=== PATIENT | male | born 1960 | race Caucasian/White ===

== ENCOUNTER 2016-11-10 16:10 | Emergency (ER) | payer MEDICAID ==
--- NOTE | 2016-11-10 16:16 | EDPHY ---
H & P Time Seen by Provider: 11/10/16 16:16 HPI/ROS: CHIEF COMPLAINT: Seizure HISTORY OF PRESENT ILLNESS: Patient arrives by EMS and has a longstanding seizure disorder. He was witnessed to have 1 today and was postictal on EMS arrival. He takes Lamictal and CBD for his seizures and has not had any changes in his medical regimen recently. Patient is feeling back to normal now except for headache which is typical for him after seizures. No fevers or chills and no injury sustained. REVIEW OF SYSTEMS: Eye: no change in vision ENT: no sore throat Cardiac: no chest pain or syncope Pulmonary: no cough or SOB Abdomen: no vomiting, diarrhea, abdominal pain Musculoskeletal: Chronic back and neck pain, unchanged Skin: no rash Neuro: Headache, generalized just typical after his seizures Constitutional: no fever : no urinary symptoms A comprehensive 10 point review of systems is otherwise negative aside from elements mentioned in the history of present illness. PAST MEDICAL HISTORY: Epilepsy and chronic neck and back pain Social history: No alcohol or drugs and no history of alcoholism or addiction. General Appearance: Alert and conversant, cooperative. Eyes: No scleral icterus. ENT, Mouth: Normal mucous membranes. No tongue laceration or abrasion. Respiratory: Normal respiratory effort, breath sounds equal, lungs are clear to auscultation. Cardiovascular: Regular rate and rhythm. Gastrointestinal: Abdomen is soft and non tender. Neurological: Alert and oriented x3. Normally conversant. Face symmetric, normal movement and sensation in all extremities. Not tremulous and normal [id number] bilaterally without pronator drift. Skin: Warm and dry, no rashes. Musculoskeletal: No spinal tenderness and neck supple without meningeal signs. Psychiatric: Not agitated. Emergency Department course/MDM: Patient likely a breakthrough seizure. He is back to his baseline now. He is given IV Toradol 15 mg for his headache, creatinine 1.2, glucose 108, sodium 140. Initially declined narcotics. 1703: Patient still has headache, 4 mg IV morphine and 4 mg IV Zofran. Again this is typical headache for him post seizure. He does appear well and does not look ill or toxic at this time. Smiling. Smoking Status: Never smoked Constitutional: Initial Vital Signs Temperature (C) 36.8 C 11/10/16 16:10 Heart Rate 99 11/10/16 16:10 Respiratory Rate 16 11/10/16 16:10 Blood Pressure 154/101 H 11/10/16 16:10 O2 Sat (%) 93 11/10/16 16:10 O2 Delivery Mode Room Air Allergies/Adverse Reactions: meperidine HCl [From Demerol] Allergy (Mild, Verified 08/13/16 14:20) room spins Home Medications: Medication Instructions Recorded Lorazepam [Ativan] 0.5 - 1 mg PO BID PRN #6 tablet 08/13/16 lamoTRIgine [LamICTAL 100 MG (*)] 100 mg PO 08/13/16 Medical Decision Making Differential Diagnosis: Differential diagnosis considered for a seizure including but not limited to electrolyte abnormality, alcohol withdrawal, medication noncompliance, head injury, and breakthrough seizure. - Data Points Laboratory Results: 11/10/16 16:21 POC Hgb 15.3 gm/dL gm/dL (14.5-17.3) POC Hct 45 % % (42.8-50.6) POC Sodium 140 mEq/L mEq/L (134-144) POC Potassium 3.9 mEq/L mEq/L (3.3-5.0) POC Chloride 100 mEq/L mEq/L (96-108) POC BUN 17 mg/dL mg/dL (7-23) POC Creatinine 1.2 mg/dL mg/dL (0.8-1.5) POC Glucose 108 mg/dL H mg/dL (70-100) Medications Given: Discontinued Medications Ketorolac Tromethamine (Toradol) 15 mg IVP EDNOW ONE Stop: 11/10/16 16:28 Last Admin: 11/10/16 16:30 Dose: 15 mg Point of Care Test Results: 11/10/16 16:21 POC Sodium 140 POC Potassium 3.9 POC Chloride 100 POC BUN 17 POC Creatinine 1.2 POC Glucose 108 H Departure - Departure Disposition: Home, Routine, Self-Care Clinical Impression: Seizure disorder Condition: Good Instructions: Epilepsy (ED) Referrals: ALONA GAITAN [Primary Care Provider] - As per Instructions Patient,NotPresent [Unknown] - As per Instructions (Dr. Kelly your neurologist at [facility])
[2016-11-10] MEDS ORDERED: KETOROLAC 15 MG/1 ML SDV ONE (16:25)
[2016-11-10] MEDS ORDERED: KETOROLAC 30 MG/1 ML SDV IVP ONE (16:27)
[2016-11-10 16:35] VITALS: TEMP 98.2
[2016-11-10] MEDS ORDERED: ONDANSETRON 4 MG/2 ML VIAL IVP ONE (17:02)
[2016-11-10 17:11] VITALS: PULSE 73
[2016-11-10 17:38] VITALS: BP 117/96; RESP 18; O2SAT 95
== END 2016-11-10 17:39 | disposition home or self-care (01) ==
LOC: EDUNIT#
DX: G40.909 Epilepsy, unspecified, not intractable, without status epilepticus (principal)
CPT/HCPCS: 82947-QW; 96374; J1885; J2405

== ENCOUNTER 2017-01-08 19:35 | Emergency (ER) | payer MEDICAID ==
--- NOTE | 2017-01-08 19:47 | EDPHY ---
H & P Stated Complaint: TEMPORAL PAIN, L EYE DROOP, RIGHT PUPIL DIALATION SINCE THIS A.M. - Personal History Current Tetanus/Diphtheria Vaccine: Unsure Current Tetanus Diphtheria and Acellular Pertussis (TDAP): Unsure - Medical/Surgical History Hx Asthma: No Hx Chronic Respiratory Disease: No Hx Diabetes: No Hx Cardiac Disease: No Hx Renal Disease: No Hx Cirrhosis: No Hx Alcoholism: No Hx HIV/AIDS: No Hx Splenectomy or Spleen Trauma: No Other PMH: EPilepsy, depression, CHI, knee and wrist surgeries. TBI, anxiety - Social History Smoking Status: Never smoked Time Seen by Provider: 01/08/17 19:47 Constitutional: Initial Vital Signs Temperature (C) 36.9 C 01/08/17 19:39 Heart Rate 82 01/08/17 19:39 Respiratory Rate 18 01/08/17 19:39 Blood Pressure 160/110 H 01/08/17 19:39 O2 Sat (%) 97 01/08/17 19:39 O2 Delivery Mode Room Air Allergies/Adverse Reactions: meperidine HCl [From Demerol] Allergy (Mild, Verified 01/08/17 19:42) room spins Home Medications: Medication Instructions Recorded lamoTRIgine [LamICTAL 100 MG (*)] 100 mg PO 08/13/16 Valacyclovir HCl [Valtrex] 1,000 mg PO TID #21 tab 01/08/17 predniSONE 40 mg PO DAILY #10 tab 01/08/17 Medical Decision Making - Diagnostics Imaging Results: Imaging Impressions Brain MRI 01/08/17 19:53 Impression: 1. Negative for acute ischemia. 2. Suspect small vessel disease. 3. Disproportionate ventricular prominence may reflect mild central atrophy. 4. See above report for additional findings. Results called and discussed with Dr. Sourav Billingsley on 01/08/2017 at 22:09. MRI brain shows no acute findings. Reviewed by me and discussed with Dr. Pool ( Sourav Billingsley) ED Course/Re-evaluation: CHIEF COMPLAINT: Right eye droop HISTORY OF PRESENT ILLNESS: The patient is a 56 y/o male arriving for presentation of unequal pupils and right eye droop that he noticed after working out around 12:00 today, almost 8 hours ago. 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 He also complains of some associated left temporal pain. He denies extremities weakness , paresthesias, difficulty with coordination, speech issues, vision changes, or any other complaints. No anticoagulants. REVIEW OF SYSTEMS: A 10 point review of systems was performed and is negative with the exception of the elements mentioned in the history of present illness. PHYSICAL EXAM: HR, BP, O2 Sat, RR. Temp noted General Appearance: Alert, well hydrated, appropriate, and non-toxic appearing. Head: Atraumatic without scalp tenderness or obvious injury Eyes: Left pupil slightly smaller than right, round, reactive to light and accommodation, EOMI, no trauma, no injection. Nose: Atraumatic, no rhinorrhea, clear. Throat: mucus membranes moist. Neck: Supple, nontender, no lymphadenopathy. Respiratory: No retractions, no distress, no wheezes, and no accessory muscle use. Lungs are clear to auscultation bilaterally. Cardiovascular: Regular rate and rhythm, no murmurs, rubs, or gallops. Good capillary refill all extremities. Gastrointestinal: Abdomen is soft, nontender, non-distended, no masses, no rebound, no guarding, no peritoneal signs. Musculoskeletal: Normal active ROM of all extremities, atraumatic. Neurological: Alert, appropriate, and interactive. Mild left eyelid droop, otherwise the patient has normal DTRs and non-focal cranial nerves, motor, sensory, and cerebellar exam. Skin: No rashes, good turgor, no nodules on palpation. Past medical history: Seizure disorder, traumatic subdural hematoma on left side 2013 Past surgical history: denies Family history: noncontributory Social history: Lives in [place]. PCP: Dr. Gaitan. DIFFERENTIAL DIAGNOSIS: The differential diagnosis for the patient's neurologic deficits included but was not limited to Cage's palsy, peripheral causes, central causes including CVA, TIA, electrolyte abnormalities and dehydration, cardiogenic causes, atypical causes like migraine syndrome. MEDICAL DECISION MAKING: This is a 56 y/o male with a history of traumatic brain injury and seizure disorder who presents with slight left eyelid droop and slightly unequal pupils. His neuro exam otherwise is completely unremarkable. This may be a Cage' s palsy or similar cranial nerve issue. He does not meet criteria for stroke alert. Plan for brain MRI and basic labs. 1mg PO Ativan administered for anxiety. 2100: Patient care signed out to Dr. Billingsley pending Brain MRI. 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 (Ata Montemayor) - Data Points Laboratory Results: Laboratory Results 01/08/17 19:52 01/08/17 19:52 01/08/17 01/08/17 19:52 19:52 WBC 6.75 10^3/uL 10^3/uL (3.80-9.50) RBC 5.05 10^6/uL 10^6/uL (4.40-6.38) Hgb 17.1 g/dL g/dL (13.7-17.5) Hct 48.9 % % (40.0-51.0) MCV 96.8 fL fL (81.5-99.8) MCH 33.9 pg pg (27.9-34.1) MCHC 35.0 g/dL g/dL (32.4-36.7) RDW 12.2 % % (11.5-15.2) Plt Count 183 10^3/uL 10^3/uL (150-400) MPV 9.6 fL fL (8.7-11.7) Neut % (Auto) 60.4 % % (39.3-74.2) Lymph % (Auto) 28.7 % % (15.0-45.0) Reagan % (Auto) 8.6 % % (4.5-13.0) Eos % (Auto) 1.8 % % (0.6-7.6) Baso % (Auto) 0.4 % % (0.3-1.7) Nucleat RBC Rel Count 0.0 % % (0.0-0.2) Absolute Neuts (auto) 4.07 10^3/uL 10^3/uL (1.70-6.50) Absolute Lymphs (auto) 1.94 10^3/uL 10^3/uL (1.00-3.00) Absolute Monos (auto) 0.58 10^3/uL 10^3/uL (0.30-0.80) Absolute Eos (auto) 0.12 10^3/uL 10^3/uL (0.03-0.40) Absolute Basos (auto) 0.03 10^3/uL 10^3/uL (0.02-0.10) Absolute Nucleated RBC 0.00 10^3/uL 10^3/uL (0-0.01) Immature Gran % 0.1 % % (0.0-1.1) Immature Gran # 0.01 10^3/uL 10^3/uL (0.00-0.10) Sodium 138 mEq/L mEq/L (134-144) Potassium 4.6 mEq/L mEq/L (3.5-5.2) Chloride 102 mEq/L mEq/L (97-110) Carbon Dioxide 24 mEq/l mEq/l (22-31) Anion Gap 12 mEq/L mEq/L (8-16) BUN 20 mg/dL mg/dL (7-23) Creatinine 1.1 mg/dL mg/dL (0.7-1.3) Estimated GFR > 60 Glucose 89 mg/dL mg/dL (70-100) Calcium 9.7 mg/dL mg/dL (8.5-10.4) Medications Given: Discontinued Medications Lorazepam (Ativan) 1 mg PO EDNOW ONE Stop: 01/08/17 20:46 Last Admin: 01/08/17 20:45 Dose: 1 mg Lorazepam (Ativan Injection) 1 mg IVP EDNOW ONE Stop: 01/08/17 21:16 Last Admin: 01/08/17 21:16 Dose: 1 mg Departure - Departure Disposition: Home, Routine, Self-Care Clinical Impression: Cage's palsy Condition: Good Instructions: Cage Palsy (ED) Additional Instructions: Take prednisone and bowel psych club ear each day as prescribed. Return for worsening symptoms. Follow up with your neurologist next Wednesday or Wednesday without fail. Referrals: ALONA GAITAN [Primary Care Provider] - As per Instructions Prescriptions: predniSONE 40 mg PO DAILY #10 tab Valacyclovir HCl [Valtrex] 1,000 mg PO TID #21 tab Report Scribed for: Ata Montemayor Report Scribed by: Clarisa Calabrese Date of Report: 01/08/17 Time of Report: 20:57
[2017-01-08 20:03] LABS: % IMMATURE GRANULYOCYTES 0.1 % (0.0-1.1); ABSOLUTE IMMATURE GRANULOCYTES 0.01 10^3/uL (0.00-0.10); ADD DIFF? NO; ADD MORPH? NO; ADD SCAN? NO; ATYPICAL LYMPHOCYTE FLAG 20 (0-99); FRAGMENT RBC FLAG 0 (0-99); HEMATOCRIT 48.9 % (40.0-51.0); HEMOGLOBIN 17.1 g/dL (13.7-17.5); LEFT SHIFT FLG 0 (0-99); LIPEMIA HEMOLYSIS FLAG 90 (0-99); MEAN CELL HEMOGLOBIN 33.9 pg (27.9-34.1); MEAN CELL VOLUME 96.8 fL (81.5-99.8); MEAN PLATELET VOLUME 9.6 fL (8.7-11.7); PLATELET CLUMPS FLAG 0 (0-99); PLATELET COUNT 183 10^3/uL (150-400); RED BLOOD CELL COUNT 5.05 10^6/uL (4.40-6.38); RED CELL DISTRIBUTION WIDTH 12.2 % (11.5-15.2)
[2017-01-08 20:12] LABS: ANION GAP 12 mEq/L (8-16); CALCIUM 9.7 mg/dL (8.5-10.4); CARBON DIOXIDE 24 mEq/l (22-31); CHLORIDE 102 mEq/L (97-110); CREATININE 1.1 mg/dL (0.7-1.3); GLOMERULAR FILTRATION RATE > 60; GLUCOSE 89 mg/dL (70-100); POTASSIUM 4.6 mEq/L (3.5-5.2); SODIUM 138 mEq/L (134-144)
[2017-01-08] MEDS ORDERED: LORazepam 1 MG TAB PO ONE (20:45)
[2017-01-08] MEDS ORDERED: LORazepam 1 MG TAB ONE (20:46)
[2017-01-08] MEDS ORDERED: LORazepam 2 MG/ML INJ ONE (21:09)
[2017-01-08] MEDS ORDERED: LORazepam 2 MG/ML INJ IVP ONE (21:15)
[2017-01-08 22:34] VITALS: TEMP 98
[2017-01-08 23:14] VITALS: BP 144/99; PULSE 77; RESP 16; O2SAT 96
== END 2017-01-08 23:13 | disposition home or self-care (01) ==
DX: G51.0 Bell's palsy (principal)
CPT/HCPCS: 96374; J2060

== ENCOUNTER 2017-04-29 16:31 | Emergency (ER) | payer MEDICAID ==
--- NOTE | 2017-04-29 17:03 | EDPHY ---
HPI/HX/ROS/PE/MDM Narrative: CHIEF COMPLAINT: Seizure HISTORY OF PRESENT ILLNESS: The patient is a 56 y/o male with a seizure disorder history arriving via EMS for evaluation after a seizure. He remembers developing his standard aura as he was walking down [address] to a meeting and then remembers waking up in the ambulance. His aura usually consists of a "white outline around people," dizziness, confusion, and the "sense that something is about to happen." He treats his seizures daily with 200mg Lamictal daily and CBD oil and reports he is compliant with these. His last seizure was also a breakthrough seizure 6 months ago. He has some anxiety about current social events that could be a contributing factor to today's seizure, but otherwise reports feeling normal without changes in daily habits. He currently has a mild headache, but feels "ready to go home." He denies any trauma from the event. He has a follow up appointment scheduled with his neurologist in a few weeks. No recent head injury, rash, fever, chills, chest pain, shortness of breath, palpitations, vomiting, diarrhea, urinary complaints, lightheadedness. REVIEW OF SYSTEMS: Aside from elements discussed in the HPI, a comprehensive 10-point review of systems was reviewed and is negative. PAST MEDICAL HISTORY: Seizure disorder, TBI 3 years ago requiring admission. SOCIAL HISTORY: No alcohol, nonsmoker, no illicit drugs, uses marijuana. Neurologist: Dr. Kelly at [facility]. Lives in [place]. Taking bus home. VITAL SIGNS: Reviewed by me GENERAL: Well-developed, well-nourished, resting comfortably in no respiratory distress. HEENT: Atraumatic. Eyes: No icterus, no injection. Mouth: moist mucous membranes. No erythema or lesions. Neck: supple with no adenopathy. LUNGS: Clear to auscultation bilaterally, no wheezes, rhonchi or rales. CARDIAC: Regular rate and rhythm, no rubs, murmurs or gallops. ABDOMEN: Soft, nontender, nondistended, bowel sounds normal. BACK: No CVA tenderness. EXTREMITIES: No trauma. No edema. Range of motion is normal throughout. NEURO: Alert and oriented, grossly nonfocal. Mild tremor. SKIN: Warm and dry, no rash. PSYCHIATRIC: Normal mentation, no agitation. Portions of this note were transcribed by a medical billing supervisor. I personally performed a history, physical exam, medical decision making, and confirmed accuracy of information the transcribed note. ED Course: IV established. Basic labs drawn. 1L IV NS administered. Neurovascularly intact on exam. No indication for imaging and patient declines further treatment. Labs are unremarkable. Patient will be discharged home with standard breakthrough seizure follow up instructions. He is comfortable with plan for discharge. MDM: Diff dx of patient seizure considered including but not limited to epilepsy, breakthru seizure, medication non-compliance, drug or alcohol withdrawl, drug or alcohol intoxication, trauma. - Data Points Laboratory Results: Laboratory Results 04/29/17 16:40 04/29/17 16:40 Medications Given: Discontinued Medications Sodium Chloride (Ns) 1,000 mls @ 0 mls/hr IV ONCE ONE; Wide Open PRN Reason: Protocol Stop: 04/29/17 17:06 Last Admin: 04/29/17 17:12 Dose: 1,000 mls General Time Seen by Provider: 04/29/17 16:55 Initial Vital Signs: Initial Vital Signs Temperature (C) 36.8 C 04/29/17 16:50 Heart Rate 18 L 04/29/17 16:50 Respiratory Rate 98 H 04/29/17 16:50 Blood Pressure 152/80 H 04/29/17 16:50 O2 Delivery Mode Room Air Allergies/Adverse Reactions: meperidine HCl [From Demerol] Allergy (Mild, Verified 01/08/17 19:42) room spins Home Medications: Medication Instructions Recorded lamoTRIgine [LamICTAL 100 MG (*)] 100 mg PO 08/13/16 Valacyclovir HCl [Valtrex] 1,000 mg PO TID #21 tab 01/08/17 predniSONE 40 mg PO DAILY #10 tab 01/08/17 Departure - Departure Disposition: Home, Routine, Self-Care Clinical Impression: Breakthrough seizure Condition: Good Instructions: Epilepsy (ED), Recurrent Seizures in Adults (ED) Additional Instructions: 1. Take your standard anticonvulsant medications as prescribed every day. 2. Do not drive or operate heavy machinery until cleared by your neurologist. 3. Follow up with your neurologist as scheduled in a few weeks and discuss today 's event. 4. Return to the ED for severe headache, weakness or numbness on one side of your body, vision changes, or other worsening of condition. Referrals: ALONA GAITAN [Primary Care Provider] - As per Instructions Report Scribed for: Yecenia Yung Report Scribed by: Clarisa Calabrese Date of Report: 04/29/17 Time of Report: 17:15
[2017-04-29] MEDS ORDERED: NS 1,000 ML IV ONE (17:05)
[2017-04-29 17:09] LABS: % IMMATURE GRANULYOCYTES 0.2 % (0.0-1.1); ABSOLUTE IMMATURE GRANULOCYTES 0.02 10^3/uL (0.00-0.10); ADD DIFF? NO; ADD MORPH? NO; ADD SCAN? NO; ATYPICAL LYMPHOCYTE FLAG 10 (0-99); FRAGMENT RBC FLAG 0 (0-99); HEMATOCRIT 46.7 % (40.0-51.0); HEMOGLOBIN 15.3 g/dL (13.7-17.5); LEFT SHIFT FLG 0 (0-99); LIPEMIA HEMOLYSIS FLAG 80 (0-99); MEAN CELL HEMOGLOBIN 33.3 pg (27.9-34.1); MEAN CELL HEMOGLOBIN CONCENTR. 32.8 g/dL (32.4-36.7); MEAN CELL VOLUME 101.5 fL (81.5-99.8); MEAN PLATELET VOLUME 10.5 fL (8.7-11.7); PLATELET CLUMPS FLAG 0 (0-99); PLATELET COUNT 233 10^3/uL (150-400); RED CELL DISTRIBUTION WIDTH 12.8 % (11.5-15.2)
[2017-04-29 17:18] LABS: ANION GAP 23 mEq/L (8-16); CALCIUM 9.7 mg/dL (8.5-10.4); CARBON DIOXIDE 16 mEq/l (22-31); CHLORIDE 99 mEq/L (97-110); CREATININE 1.3 mg/dL (0.7-1.3); GLOMERULAR FILTRATION RATE 57; GLUCOSE 118 mg/dL (70-100); POTASSIUM 3.7 mEq/L (3.5-5.2); SODIUM 138 mEq/L (134-144)
[2017-04-29 17:31] VITALS: BP 141/97; PULSE 76; RESP 16; TEMP 98.4; O2SAT 95
== END 2017-04-29 17:31 | disposition home or self-care (01) ==
DX: G40.909 Epilepsy, unspecified, not intractable, without status epilepticus (principal); E86.9 Volume depletion, unspecified

== ENCOUNTER 2017-07-01 11:44 | Emergency (ER) | payer MEDICAID ==
--- NOTE | 2017-07-01 13:32 | CPEKG ---
Heart Rate: 93 RR Interval: 645 P-R Interval: 160 QRSD Interval: 82 QT Interval: 344 QTC Interval: 428 P [place]: 68 QRS [place]: 33 T Wave [place]: 6 EKG Severity - ABNORMAL ECG - EKG Impression: SINUS RHYTHM EKG Impression: ABNRM R PROG, CONSIDER ASMI OR LEAD PLACEMENT Electronically Signed By: Angelica Veronica 01-Jul-2017 20:47:57
[2017-07-01 13:47] LABS: % IMMATURE GRANULYOCYTES 0.3 % (0.0-1.1); ABSOLUTE IMMATURE GRANULOCYTES 0.03 10^3/uL (0.00-0.10); ADD DIFF? NO; ADD MORPH? NO; ADD SCAN? NO; ATYPICAL LYMPHOCYTE FLAG 10 (0-99); FRAGMENT RBC FLAG 0 (0-99); HEMATOCRIT 48.3 % (40.0-51.0); HEMOGLOBIN 16.7 g/dL (13.7-17.5); LEFT SHIFT FLG 0 (0-99); LIPEMIA HEMOLYSIS FLAG 90 (0-99); MEAN CELL HEMOGLOBIN 33.1 pg (27.9-34.1); MEAN CELL HEMOGLOBIN CONCENTR. 34.6 g/dL (32.4-36.7); MEAN CELL VOLUME 95.6 fL (81.5-99.8); MEAN PLATELET VOLUME 10.1 fL (8.7-11.7); PLATELET CLUMPS FLAG 0 (0-99); PLATELET COUNT 182 10^3/uL (150-400); RED BLOOD CELL COUNT 5.05 10^6/uL (4.40-6.38); RED CELL DISTRIBUTION WIDTH 12.3 % (11.5-15.2)
[2017-07-01 14:11] LABS: ANION GAP 14 mEq/L (8-16); CALCIUM 9.8 mg/dL (8.5-10.4); CARBON DIOXIDE 25 mEq/l (22-31); CHLORIDE 103 mEq/L (97-110); CREATININE 1.2 mg/dL (0.7-1.3); GLOMERULAR FILTRATION RATE > 60; GLUCOSE 83 mg/dL (70-100); SODIUM 142 mEq/L (134-144)
--- NOTE | 2017-07-01 14:25 | EDPHY ---
H & P Stated Complaint: L ant CP x 1 month not resolving HPI/ROS: CHIEF COMPLAINT: Racing heart rate HISTORY OF PRESENT ILLNESS: The patient is a 57 y/o male with a history of anxiety and seizure disorder who complains of chest pain for the last month and rapid heart rate this morning. He has had similar symptoms previously with a previous ED evaluation, reportedly normal. Today he had an elevated heart rate during weight training exercise that did not improve after he finished his work out. It took 2-3 hours for the elevated heart rate to improve. He says "usually putting myself under cardiac stress helps" his anxiety symptoms. He currently has some mild 1/10, non-radiating, upper sternal chest pain, but in general feels much better. He says this pain "feels as though part of my pectoral muscle is stretched or torn." He has not taken anything for his symptoms. He denies nausea, recent cough or cold, abdominal pain, leg swelling, vomiting, black stool. He denies cardiac disease history, diabetes, or hypercholesterolemia. He has some intermittent hypertension for which she does not take medication REVIEW OF SYSTEMS: A ten point review of systems was performed and is negative with the exception of the items mentioned in the HPI. Past medical history: 1. Seizure disorder - Lamictal. States he is compliant. 2. Anxiety 3. 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 Past surgical history: Noncontributory Family history: Anxiety, depression. 3 siblings from Juan's disease. Nonsmoker. No alcohol. 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 Father - prostate cancer Social history: Not employed. PCP: Dr. Alona Espinoza General Appearance: Alert. Vital signs reviewed. Blood pressure 138/106. Heart rate 101 at triage, 88 upon assessment. Eyes: Pupils equal and round, no conjunctival injection, no discharge. Anicteric. ENT, Mouth: Mucous membranes are moist, no oropharyngeal erythema or edema. Neck: No lymphadenopathy, supple. Respiratory: Lungs are clear to auscultation; no wheezes, rales, or rhonchi. Cardiovascular: Regular rate and rhythm; no murmur, rub, or gallop. Gastrointestinal: Abdomen is soft and nontender, no masses or organomegaly, bowel sounds normal. Skin: Warm and dry, no rashes on exposed skin, normal color. Back: Nontender to palpation over the thoracolumbar spine. No CVAT. Extremities: No lower extremity edema, no calf tenderness or swelling. Neurological: Alert and oriented. Moving all four extremities easily and equally. Psychiatric: Normal affect. - Personal History Current Tetanus/Diphtheria Vaccine: Unsure Current Tetanus Diphtheria and Acellular Pertussis (TDAP): Unsure - Medical/Surgical History Hx Asthma: No Hx Chronic Respiratory Disease: No Hx Diabetes: No Hx Cardiac Disease: No Hx Renal Disease: No Hx Cirrhosis: No Hx Alcoholism: No Hx HIV/AIDS: No Hx Splenectomy or Spleen Trauma: No Other PMH: EPilepsy, depression, CHI, knee and wrist surgeries. TBI, anxiety - Social History Smoking Status: Never smoked Constitutional: Initial Vital Signs Temperature (C) 37.0 C 07/01/17 11:55 Heart Rate 101 H 07/01/17 11:55 Respiratory Rate 16 07/01/17 11:55 Blood Pressure 138/106 H 07/01/17 11:55 O2 Sat (%) 98 07/01/17 11:55 O2 Delivery Mode Room Air Allergies/Adverse Reactions: meperidine HCl [From Demerol] Allergy (Mild, Verified 01/08/17 19:42) room spins Home Medications: Medication Instructions Recorded LaMICtal 07/01/17 Medical Decision Making - Diagnostics EKG Interpretation: 12 lead EKG is interpreted in Trace master View by emergency department physician. ED Course/Re-evaluation: This is a well-appearing 57 y/o male who presents for evaluation of persistent tachycardia following his work out this morning. He was mildly tachycardic in triage with a rate of 101, but has a normal rate of 88 upon My assessment. His exam is unremarkable. Plan for cardiac work up including IV, labs, EKG. The 12 lead EKG was interpreted by myself. Sinus mechanism. See hard copy and/ or "tracemaster" electronic copy for interpretation. Reassessed patient and discussed work up. Labs including troponin are normal. He is feeling well and would like to go home. He believes his symptoms are related to anxiety and possible muscle strain. I've recommended ibuprofen for pain and follow up with his PCP for unimproved symptoms. Return precautions discussed. He is comfortable with plan for discharge. Differential Diagnosis: I considered a differential diagnosis that includes but is not limited to tachyarrhythmia, volume depletion, anxiety, acute coronary syndrome. - Data Points Laboratory Results: Laboratory Results 07/01/17 13:34 07/01/17 13:34 Departure - Departure Disposition: Home, Routine, Self-Care Clinical Impression: Anxiety, Chest wall pain Condition: Good Instructions: Anxiety (ED), Chest Wall Pain (ED) Additional Instructions: 1. You can take 600mg ibuprofen every 6-8 hours as needed for pain over the next few days. 2. Follow up with Dr. Espinoza for unimproved symptoms over the next few days. 3. Return to the ED for chest pain, shortness of breath, or other worsening of condition. Referrals: ALONA ESPINOZA [Primary Care Provider] - As per Instructions Report Scribed for: Angelica Veronica Report Scribed by: Clarisa Calabrese Date of Report: 07/01/17 Time of Report: 15:07 Physician Review and Approval Statement: 07/01/17 14:25 Portions of this note were transcribed by the dental assistant medical assistant. I, Dr. Angelica Veronica, personally performed the history, physical exam, and medical decision- making; and confirmed the accuracy of the information in the transcribed note.
[2017-07-01 14:38] VITALS: RESP 18
[2017-07-01 15:43] VITALS: BP 133/77; PULSE 80; TEMP 98.1; O2SAT 99
== END 2017-07-01 15:43 | disposition home or self-care (01) ==
DX: R07.89 Other chest pain (principal); F41.9 Anxiety disorder, unspecified

== ENCOUNTER 2017-07-03 09:37 | Emergency (ER) | payer MEDICAID ==
[2017-07-03 09:49] VITALS: RESP 16; TEMP 98.2; O2SAT 96
[2017-07-03] MEDS ORDERED: TDAP ADULT 0.5 ML INJ (BOOSTRIX) IM ONE (10:21)
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
[2017-07-03 11:39] VITALS: BP 136/94; PULSE 73
== END 2017-07-03 11:38 | disposition home or self-care (01) ==
LOC: CED 09:37
PROC: 0HQFXZZ Repair Right Hand Skin, External Approach (ICD-10-PCS; principal; 2017-07-03)
DX: S61.411A Laceration without foreign body of right hand, initial encounter (principal); Z23 Encounter for immunization; W26.0XXA Contact with knife, initial encounter; Y92.009 Unspecified place in unspecified non-institutional (private) residence as the place of occurrence of the external cause
CPT/HCPCS: L3807

== ENCOUNTER 2018-10-09 07:51 | Inpatient (IN) | payer OTHER, MEDICAID ==
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
[2018-10-09] MEDS ORDERED: ATROPINE SULFATE 1 MG/10 ML SYR ONE ×2 (08:02)
[2018-10-09] MEDS ORDERED: IOPAMIDOL (ISOVUE-300) 100 ML BTL ONE (08:02)
[2018-10-09] MEDS ORDERED: ONDANSETRON DISINTEGRATING 4 MG TAB PO PRN ×2 (08:08→09:45)
[2018-10-09] MEDS ORDERED: ONDANSETRON 4 MG/2 ML VIAL IVP PRN ×2 (08:08→09:45)
[2018-10-09] MEDS ORDERED: ACETAMINOPHEN 325 MG TAB PO PRN ×2 (08:08→09:44)
[2018-10-09] MEDS ORDERED: NALOXONE HCL 0.4 MG/ML INJ IVP PRN ×3 (08:08→13:12)
[2018-10-09] MEDS ORDERED: D5W 1/2 NS W/ 20 KCl/L 1,000 ML IV SCH (08:15)
[2018-10-09] MEDS ORDERED: ATROPINE SULFATE 1 MG/ML VIAL IVP ONE (08:18)
[2018-10-09] MEDS ORDERED: levETIRAcetam 1000MG/NACL 100 ML IV ONE (08:18)
[2018-10-09] MEDS ORDERED: NS 1,000 ML IV ONE ×2 (08:19→10:00)
[2018-10-09 08:21] LABS: PLATELET COUNT 228 10^3/uL (150-400)
[2018-10-09] MEDS ORDERED: fentaNYL 100 MCG/2 ML INJ IVP ONE (08:56)
--- NOTE | 2018-10-09 09:05 | CPEKG ---
Test Reason : OPEN Blood Pressure : / mmHG Vent. Rate : 077 BPM Atrial Rate : 077 BPM P-R Int : 256 ms QRS Dur : 085 ms QT Int : 405 ms P-R-T Axes : -60 018 028 degrees QTc Int : 459 ms Sinus or ectopic atrial rhythm Prolonged [place] interval Borderline ST elevation, anterolateral leads Confirmed by Noah Wilder ([id number]) on 10/09/2018 9:05:15 AM Referred By: Marycarmen Mckoy Confirmed By:Noah Wilder
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
[2018-10-09] MEDS: D5W 1/2 NS W/ 20 KCl/L 1,000 ML IV SCH (11:00)
[2018-10-09] MEDS ORDERED: HYDROmorphONE/DILAUDID 6 MG/30 ML PCA IV PRN (13:12)
[2018-10-09] MEDS: HYDROCODONE/APAP 5/325 TAB PO PRN ×2 (13:16→20:31)
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
[2018-10-09] MEDS: HYDROmorphONE/DILAUDID 1 MG/ML INJ IVP PRN ×2 (16:44→23:57)
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
[2018-10-09] MEDS: lamoTRIgine 25 MG TAB PO SCH (20:34)
[2018-10-09] MEDS: lamoTRIgine 100 MG TAB PO SCH (20:36)
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
[2018-10-10] MEDS: HYDROCODONE/APAP 5/325 TAB PO PRN ×4 (02:34→19:07)
[2018-10-10] MEDS: D5W 1/2 NS W/ 20 KCl/L 1,000 ML IV SCH (02:35)
[2018-10-10 05:31] LABS: PLATELET COUNT 150 10^3/uL (150-400)
--- NOTE | 2018-10-10 07:40 | NEUROPROG ---
Assessment: I checked on the patient today. He is stable and agree with the plans as outlined by Dr. Elena. I spoke to Dr. Mckoy and confirm the plan. The patient does not have new deficits this morning and head CT did not show any acute pathology. I agree with the plan for him to follow up with Dr. Kelly at neurology after discharge. Total unit time of 15 min. Objective: Vital Signs Temp Pulse Resp BP Pulse Ox 37.1 C 82 13 106/65 97 10/09/18 19:00 10/10/18 07:00 10/10/18 07:00 10/10/18 07:00 10/10/18 07:00 Laboratory Results 10/10/18 05:20 10/09/18 10/10/18 10/11/18 05:59 05:59 05:59 Intake Total 3346 Output Total 1425 Balance 1921 Allergies/Adverse Reactions: meperidine HCl [From Demerol] Allergy (Mild, Verified 01/08/17 19:42) room spins
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
[2018-10-10] MEDS: lamoTRIgine 100 MG TAB PO SCH ×2 (09:05→19:10)
[2018-10-10] MEDS: ENOXAPARIN 40 MG/0.4 ML SYR SC SCH (09:06)
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
[2018-10-10] MEDS: lamoTRIgine 25 MG TAB PO SCH (19:08)
[2018-10-11] MEDS: HYDROmorphONE/DILAUDID 1 MG/ML INJ IVP PRN ×3 (02:04→06:27)
[2018-10-11] MEDS ORDERED: oxyCODONE IR 5 MG TAB PO PRN (02:39)
[2018-10-11] MEDS: lamoTRIgine 100 MG TAB PO SCH ×2 (08:10→20:30)
[2018-10-11] MEDS: ENOXAPARIN 40 MG/0.4 ML SYR SC SCH (08:11)
[2018-10-11] MEDS ORDERED: BISACODYL 10 MG SUPP PR PRN (08:19)
[2018-10-11] MEDS ORDERED: MAGNESIUM HYDROXIDE 30 ML UDCUP PO PRN (08:19)
[2018-10-11] MEDS ORDERED: LACTULOSE 20 GM/30 ML UDCUP PO PRN (08:19)
[2018-10-11] MEDS ORDERED: POLYETHYLENE GLYCOL 3350 17 GM PKT PO PRN (08:19)
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
[2018-10-11] MEDS: HYDROCODONE/APAP 10/325 TAB PO PRN ×3 (08:34→20:29)
[2018-10-11] MEDS: SENNOSIDES/DOCUSATE SODIUM TAB PO SCH ×2 (10:57→20:33)
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
[2018-10-11] MEDS: lamoTRIgine 25 MG TAB PO SCH (20:42)
[2018-10-12] MEDS: HYDROCODONE/APAP 10/325 TAB PO PRN ×2 (02:20→08:50)
[2018-10-12] MEDS: SENNOSIDES/DOCUSATE SODIUM TAB PO SCH (08:49)
[2018-10-12] MEDS: lamoTRIgine 100 MG TAB PO SCH (08:50)
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
[2018-10-12 09:51] VITALS: BP 154/92
[2018-10-12] MEDS ORDERED: HYDROCODONE/APAP 5/325 TAB PO PRN (10:22)
--- NOTE | 2018-10-12 13:09 | ECHO ---
[email or web address] [address] [address] Main: [phone] Fax: Transthoracic Echocardiogram Name: CLIFFORD BILL MR#: [id number] Study Date: 10/12/2018 Study Time: 12:21 PM Date of : 1960 Age: 58 year(s) Height: 177.8 cm (70 in.) Weight: 65.77 kg (145 lb.) BSA: 1.82 m2 Gender: Male Examination: Limited Echo Indication: tachycardia, recent sternal fracture, LVEF {LVLVEF: LVEF}, wall motion, assess for pericardial effusion Image Quality: Contrast: Requested by: Pooja Roberto BP: 170 mmHg/114 mmHg Heart Rate: Rhythm: Indication: tachycardia, recent sternal fracture, LVEF {LVLVEF: LVEF}, wall motion, assess for pericardial effusion Procedure Staff Business Performance Analyst: Laura Navas [facility] Reading Physician: Pooja Roberto MD Requesting Provider: Conclusions: Normal size left ventricle. Normal global systolic LV function. The ejection fraction is visually estimated to be 60 %. No regional wall motion abnormality. No pericardial effusion. Measurements: Chambers Valvular Assessment AV/MV Valvular Assessment TV/PV Normal Normal Normal Name Value Range Name Value Range Name Value Range Visual EF: 60 % Continued Measurements: Findings: Left Ventricle: Normal size left ventricle. Normal global systolic LV function. The ejection fraction is visually estimated to be 60 %. No regional wall motion abnormality. Pericardium: No pericardial effusion. (No Signature Object) Patient: CLIFFORD BILL Study Date: 10/12/2018 Page 1 of 1 12:21 PM [id number]
[2018-10-12] MEDS: ENOXAPARIN 40 MG/0.4 ML SYR SC SCH (15:02)
--- NOTE | 2018-10-12 15:08 | PDDCSUM ---
Discharge Summary Discharge Summary: #[id number] BREONNA Red MD, FACS
--- NOTE | 2018-10-12 15:32 | ASMTLACE ---
EARLENE Length of stay for Answers: 2 days current admission Acuity / Level of Answers: Yes Care: Did the patient have an inpatient admission? Comorbidities - select Answers: Other Notes: Seizure disorder; Hx of all that apply TBI # of Emergency department Answers: 1-2 visits in the last 6 months Social determinants Answers: Mental health diagnosis (anxiety, depression, pers onality disorders, etc.) Score: 10 Date Signed: 10/12/2018 03:31 PM Electronically Signed By:KYLE Thomas
--- NOTE | 2018-10-12 15:48 | ASMTCMCOM ---
CM Note CM Note Notes: Pt medically stable for d/c, therapies clear pt for home. No CM d/c needs identified. Date Signed: 10/12/2018 03:48 PM Electronically Signed By:KYLE Thomas
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
--- NOTE | 2018-10-18 13:40 | CPEKG ---
Test Reason : OPEN Blood Pressure : / mmHG Vent. Rate : 075 BPM Atrial Rate : 074 BPM P-R Int : 170 ms QRS Dur : 082 ms QT Int : 362 ms P-R-T Axes : 069 034 024 degrees QTc Int : 405 ms Sinus rhythm Confirmed by Felipe Reese ([id number]) on 10/18/2018 1:40:20 PM Referred By: Marycarmen Mckoy Confirmed By:Felipe Reese
== END 2018-10-12 15:52 | disposition home or self-care (01) | DRG 566 ==
LOC: EDUNIT# → INTOOBSV 08:08 → F2N 09:43 → F3N 10-10 21:37 → OBSVTOIN 10-11 10:57 → UNDODISIN 10-11 17:09
PROVIDERS: ADMIT Surgery; ATTEND Surgery
DX: S22.20XA Unspecified fracture of sternum, initial encounter for closed fracture (principal); S00.03XA Contusion of scalp, initial encounter; G40.909 Epilepsy, unspecified, not intractable, without status epilepticus; I44.0 Atrioventricular block, first degree; R00.1 Bradycardia, unspecified; Z87.820 Personal history of traumatic brain injury; V47.5XXA Car driver injured in collision with fixed or stationary object in traffic accident, initial encounter
CPT/HCPCS: 80175-90; 82435-PO; 82565-PO; 82947-PO; 84132-PO; 84295-PO; 84484-ER; 84520-PO; 85014-ER; 92507-GN; 92523-GN; 96374; 97116-GP; 97161-GP; 97165-GO; 97530-GO; 97535-GO; G0378; J0461; J1170; J1650; J1953; J2270; J3010; Q9967

== ENCOUNTER 2018-11-10 07:46 | Emergency (ER) | payer MEDICAID, OTHER ==
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
[2018-11-10] MEDS ORDERED: lamoTRIgine 100 MG TAB PO ONE (09:04)
[2018-11-10] MEDS ORDERED: NS 1,000 ML IV ONE (09:04)
[2018-11-10 09:29] LABS: PLATELET COUNT 213 10^3/uL (150-400)
[2018-11-10 09:39] LABS: CREATINE KINASE 83 IU/L (0-224)
[2018-11-10 10:05] VITALS: BP 149/108
== END 2018-11-10 10:26 | disposition home or self-care (01) ==
LOC: EDUNIT#
DX: S00.83XA Contusion of other part of head, initial encounter (principal); M50.31 Other cervical disc degeneration, high cervical region; G40.409 Other generalized epilepsy and epileptic syndromes, not intractable, without status epilepticus; E86.9 Volume depletion, unspecified; Z79.899 Other long term (current) drug therapy; F32.9 Major depressive disorder, single episode, unspecified
CPT/HCPCS: 84484-ER

== ENCOUNTER 2018-12-28 11:38 | Emergency (ER) | payer MEDICAID ==
--- NOTE | 2018-12-28 12:25 | EDPHY ---
H & P Time Seen by Provider: 12/28/18 11:50 HPI/ROS: CHIEF COMPLAINT: Seizure HISTORY OF PRESENT ILLNESS: The patient is a 50-year-old male with a history of seizure disorder who presents emergency department after having seizure. The patient states he started his Lamictal a few weeks ago. His last seizure was in September of 2018. 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 He was brought to the emergency department with some confusion. During my evaluation the patient was answering questions appropriately and fell back normal. The patient has no complaints at this time. He denies headache or neck pain. No back pain. No chest pain or shortness of breath. Patient does not recognize any triggers as started this seizure. REVIEW OF SYSTEMS: 10 systems were reveiwed and are negative with the exception of the elements mentioned in the history of present illness. Past Medical/Surgical History: Includes seizure disorder Smoking Status: Never smoked Physical Exam: Vitals noted GENERAL: Well-appearing, in no acute distress, alert. HEENT: Eyes normal to inspection, normal pharynx, no signs of dehydration. NECK: Normal, supple. No tenderness RESPIRATORY: Clear to auscultation bilaterally, no rales, rhonchi or wheezing. CVS: Regular rate and rhythm, no rubs, murmurs, or gallops. ABDOMEN: Soft, nontender, nondistended, no organomegaly. BACK: Normal to inspection, no CVA tenderness. SKIN: Normal color, no rash, warm, dry. No pallor. EXTREMITIES: No pedal edema, no calf tenderness, no Hom[place] sign or cords, no joint swelling. NEURO/PSYCH: Higher functions: Alert and Oriented x3. Normal speech and cognition. Normal mood and affect. Cranial nerves: Normal as tested. Cerebellar: Normal as tested. Good finger to nose, good [id number], normal gait. Peripheral exam: Normal motor exam. Normal sensation. Normal reflexes. Constitutional: Initial Vital Signs Temperature (C) 37.1 C 12/28/18 11:44 Heart Rate 118 H 12/28/18 11:44 Respiratory Rate 18 12/28/18 11:44 Blood Pressure 152/97 H 12/28/18 11:44 O2 Sat (%) 95 12/28/18 11:44 O2 Delivery Mode Room Air Allergies/Adverse Reactions: meperidine HCl [From Demerol] Allergy (Mild, Verified 11/10/18 07:55) room spins Home Medications: Medication Instructions Recorded Herbals/Supplements -Info Only 1 ea PO DAILY 10/09/18 [place]-3 Fatty Acids [Fish Oil 1000 1,000 mg PO DAILY 10/09/18 mg (*)] Polyethylene Glycol 3350 [Miralax 17 gm PO DAILY PRN pkt 10/12/18 17 gm (*)] Sennosides/Docusate Sodium 1 - 2 tab PO BID #30 tab 10/12/18 [Senokot-S] lamoTRIgine [LamICTAL 100 MG (*)] 150 mg PO BID #60 tab 10/12/18 Steroid Cream For Rash 11/10/18 Medical Decision Making ED Course/Re-evaluation: In the emergency department I discussed possible etiologies with the patient. I answered all his questions. I do not feel the patient needs further workup at this time. Patient felt comfortable this plan. He is given warnings prior to leaving. He will return with worsening symptoms. Differential Diagnosis: My differential includes but is not limited to seizure, subarachnoid hemorrhage , subdural hematoma, epidural hematoma, CVA Departure - Departure Disposition: Home, Routine, Self-Care Clinical Impression: Seizure Condition: Good Instructions: Epilepsy (ED) Additional Instructions: Return with increasing headache, neck pain, repeat seizures or any other concerns. Referrals: ALONA GAITAN [Primary Care Provider] - 5-7 days, call for appt.
[2018-12-28 12:30] VITALS: BP 140/97
== END 2018-12-28 12:41 | disposition home or self-care (01) ==
LOC: EDUNIT#
DX: G40.909 Epilepsy, unspecified, not intractable, without status epilepticus (principal)